=== PATIENT | male | born 1955 | race Two or more races ===

== ENCOUNTER 2024-04-18 23:45 | Inpatient (IN) | payer OTHER ==
[~2024-04-18] VITALS: Ht 165.1 cm; Wt 65.0 kg
[2024-04-19 01:08] LABS: BASOPHILS % (AUTO) 0.4 % (0.0-2.0); EOSINOPHILS % (AUTO) 0.4 % (1.0-6.0); HEMOGLOBIN 16.9 g/dL (13.5-17.5); LYMPHOCYTES # (AUTO) 2.4 K/uL (1.0-4.8); LYMPHOCYTES % (AUTO) 23.9 % (22.0-44.0); MEAN CORPUSCULAR HEMOGLOBIN 30.7 pg (26.0-34.0); MEAN CORPUSCULAR HGB CONC 33.2 G/dL (31.0-37.0); MEAN CORPUSCULAR VOLUME 93 fL (80-100); MONOCYTES # (AUTO) 0.9 K/uL (0.1-1.0); MONOCYTES % (AUTO) 9.3 % (2.0-9.0); NEUTROPHILS # (AUTO) 6.5 K/uL (1.8-7.7); PLATELET COUNT (AUTO) 208 K/uL (150-450); RED BLOOD CELL COUNT(AUTO) 5.51 MIL/uL (4.50-5.90); RED CELL DISTRIBUTION WIDTH 13.5 % (11.5-14.5); WHITE BLOOD COUNT (AUTO) 9.9 K/uL (4.5-11.0)
[2024-04-19 01:22] LABS: ANION GAP 6 mmol/L (8-16); CARBON DIOXIDE 31 mmol/L (22-29); CHLORIDE 104 mmol/L (98-107); CREATININE 0.76 mg/dL (0.60-1.30); GLOMERULAR FILTR. RATE CALC > 60 mL/min (>60); GLUCOSE,RANDOM 140 mg/dL (70-110); POTASSIUM 4.5 mmol/L (3.5-5.1); SODIUM SERUM 141 mmol/L (136-145); UREA NITROGEN, BLOOD 17 mg/dL (7-18)
[2024-04-19 01:28] LABS: ALANINE AMINOTRANSFERASE 19 U/L (12-78); ALBUMIN 4.1 g/dL (3.4-5.0); ALKALINE PHOSPHATASE 95 U/L (46-116); ASPARTATE AMINOTRANSFERASE 11 U/L (15-37); BILIRUBIN,TOTAL 0.5 mg/dL (0.1-1.0); TOTAL PROTEIN, SERUM 7.4 g/dL (6.4-8.2)
[2024-04-19 01:50] LABS: ALCOHOL, BLOOD (SERUM) < 3 mg/dL (0-10)
[2024-04-19] MEDS ORDERED: ONDANSETRON HCL 4 MG/2 ML VIAL IVP PRN (02:30)
[2024-04-19] MEDS ORDERED: DEXTROSE 50%-WATER 25 GM/50 ML SYRINGE IVP PRN (03:15)
[2024-04-19 03:29] LABS: COVID AG,FIA SOURCE NASAL SWAB
[2024-04-19 03:58] LABS: SARS-COV2 (COVID) ANTIGEN,FIA Negative (Negative)
[2024-04-19 05:49] LABS: PH,URINE DRUG SCREEN 5.5 (5.0-8.0)
[2024-04-19 05:56] LABS: ALCOHOL, URINE DRUG SCREEN NEGATIVE (NEGATIVE); AMPHET/METH SCREEN,URINE NEGATIVE (NEGATIVE); BARBITURATE SCREEN, URINE NEGATIVE (NEGATIVE); BENZODIAZEPINES SCREEN,URINE NEGATIVE (NEGATIVE); CANNABINOID SCREEN,URINE NEGATIVE (NEGATIVE); COCAINE SCREEN,URINE NEGATIVE (NEGATIVE); METHADONE SCREEN, URINE NEGATIVE (NEGATIVE); OPIATE SCREEN,URINE NEGATIVE (NEGATIVE); PHENCYCLIDINE SCREEN,URINE NEGATIVE (NEGATIVE)
[2024-04-19] MEDS: HEPARIN SODIUM,PORCINE 5,000 UNITS/ML VIAL SQ SCH (08:00)
[2024-04-19] MEDS: DOCUSATE SODIUM 100 MG CAPSULE PO SCH (08:14)
[2024-04-19] MEDS: LevETIRAcetam 500 MG TABLET PO SCH (08:14)
[2024-04-19 10:02] VITALS: BP 109/55; PULSE 68; RESP 20; TEMP 97.6; O2SAT 100
[2024-04-19] MEDS: INSULIN LISPRO 100 UNITS/ML SQ PRN (12:18)
[2024-04-19 12:40] LABS: GLUCOMETER DEV NAME(LOC) 6S.1D; GLUCOSE,POINT OF CARE 243 MG/DL (70-110)
[2024-04-19 20:21] VITALS: BP 93/53; PULSE 59; RESP 18; TEMP 98; O2SAT 99
[2024-04-19] MEDS: ACETAMINOPHEN 325 MG TABLET PO PRN (20:21)
[2024-04-19] MEDS ORDERED: AMOX-457 PO (23:24)
[2024-04-19] MEDS ORDERED: BUPR1FIL5 SL (23:24)
[2024-04-19] MEDS ORDERED: CLOZ25TA52 PO (23:24)
[2024-04-19] MEDS ORDERED: HYDR30CR39 TP (23:24)
[2024-04-19] MEDS ORDERED: BUPR1FIL7 SL (23:24)
[2024-04-19] MEDS ORDERED: BRIM5DRO9 OU (23:24)
[2024-04-19] MEDS ORDERED: XALA2.5OS OU (23:24)
[2024-04-19] MEDS ORDERED: SUCR1TAB2 PO ×2 (23:24)
[2024-04-19] MEDS ORDERED: MAGN-169 PO (23:24)
[2024-04-19] MEDS ORDERED: DORZ10DR10 OU (23:24)
[2024-04-19] MEDS ORDERED: ARIP2TAB27 PO (23:24)
[2024-04-19] MEDS ORDERED: VENL-68 PO (23:24)
[2024-04-19] MEDS ORDERED: LINA290C PO (23:24)
[2024-04-19] MEDS ORDERED: NALO4SPR NASAL (23:24)
[2024-04-19] MEDS ORDERED: LIDO1ADH83 TP (23:24)
[2024-04-19] MEDS ORDERED: ONDA-104 PO (23:25)
[2024-04-19] MEDS ORDERED: OMEP20 PO (23:25)
[2024-04-20 04:00] VITALS: BP 90/61; PULSE 57; RESP 20; TEMP 97.9; O2SAT 98
[2024-04-20 07:25] LABS: ANION GAP 7 mmol/L (8-16); CALCIUM, TOTAL 8.7 mg/dL (8.8-10.5); CARBON DIOXIDE 29 mmol/L (22-29); CHLORIDE 103 mmol/L (98-107); CREATININE 0.77 mg/dL (0.60-1.30); GLOMERULAR FILTR. RATE CALC > 60 mL/min (>60); GLUCOSE,RANDOM 129 mg/dL (70-110); POTASSIUM 4.1 mmol/L (3.5-5.1); SODIUM SERUM 139 mmol/L (136-145); UREA NITROGEN, BLOOD 19 mg/dL (7-18)
[2024-04-20 07:44] LABS: BASOPHILS % (AUTO) 0.5 % (0.0-2.0); EOSINOPHILS % (AUTO) 0.7 % (1.0-6.0); HEMATOCRIT 50.5 % (41-53); HEMOGLOBIN 17.1 g/dL (13.5-17.5); LYMPHOCYTES # (AUTO) 2.2 K/uL (1.0-4.8); LYMPHOCYTES % (AUTO) 30.4 % (22.0-44.0); MEAN CORPUSCULAR HEMOGLOBIN 31.2 pg (26.0-34.0); MEAN CORPUSCULAR HGB CONC 33.8 G/dL (31.0-37.0); MEAN CORPUSCULAR VOLUME 92 fL (80-100); MONOCYTES # (AUTO) 0.6 K/uL (0.1-1.0); MONOCYTES % (AUTO) 7.7 % (2.0-9.0); NEUTROPHILS # (AUTO) 4.4 K/uL (1.8-7.7); NEUTROPHILS % (AUTO) 60.7 % (40.0-70.0); PLATELET COUNT (AUTO) 198 K/uL (150-450); RED BLOOD CELL COUNT(AUTO) 5.47 MIL/uL (4.50-5.90); RED CELL DISTRIBUTION WIDTH 13.5 % (11.5-14.5); WHITE BLOOD COUNT (AUTO) 7.2 K/uL (4.5-11.0)
[2024-04-20 08:00] VITALS: BP 119/71; PULSE 65; RESP 17; TEMP 97.7; O2SAT 99
[2024-04-20 19:50] VITALS: BP 105/63; PULSE 66; RESP 18; TEMP 98; O2SAT 96
[2024-04-20 19:51] LABS: GLUCOMETER DEV NAME(LOC) 6S.2; GLUCOSE,POINT OF CARE 271 MG/DL (70-110)
[2024-04-21 04:55] VITALS: BP 110/53; PULSE 53; RESP 18; TEMP 97.6; O2SAT 97
[2024-04-21 06:50] LABS: GLUCOMETER DEV NAME(LOC) 6S.1D; GLUCOSE,POINT OF CARE 114 MG/DL (70-110)
[2024-04-21 08:04] VITALS: BP 97/59; PULSE 60; RESP 18; TEMP 98.7; O2SAT 99
== END 2024-04-21 12:45 | DRG 563 ==
LOC: EMS 23:45 → EDH 04-19 02:57 → 6S 04-19 09:52
PROVIDERS: ADMIT Internal Medicine; ATTEND Internal Medicine
DX: S93.492A Sprain of other ligament of left ankle, initial encounter (principal); R45.851 Suicidal ideations; E87.3 Alkalosis; F33.1 Major depressive disorder, recurrent, moderate; G40.909 Epilepsy, unspecified, not intractable, without status epilepticus; Z20.822 Contact with and (suspected) exposure to COVID-19; E11.51 Type 2 diabetes mellitus with diabetic peripheral angiopathy without gangrene; I10 Essential (primary) hypertension; X58.XXXA Exposure to other specified factors, initial encounter; Y93.89 Activity, other specified; Y92.89 Other specified places as the place of occurrence of the external cause; Y99.8 Other external cause status
CPT/HCPCS: 80048; 80053; 80307; 82962; 83735; 85025; 99285; G0480; J1644